=== PATIENT | male | born 1990 | race Hispanic/Latino ===

== ENCOUNTER 2021-08-29 11:46 | Emergency (ER) ==
--- OUTSIDE RECORDS SUMMARY | 2021-08-29 11:50 | XMS REPORT | Continuity of Care Document ---
:1990 Author Organization [facility] t Address [address] [place] [address] [address]. [address] [place] [address] Care Team Providers Name Role Phone ANESAURABH Primary Care Physician Unavailable JEFF Attending Clinician Unavailable JEFF Attending Clinician Unavailable Disha BOTTLING ATTENDANT Attending Clinician DISHA Attending Clinician Unavailable Roberto Carlos COBB, E Attending Clinician Tomasz COBB Attending Clinician Teri ARIAS, S Attending Clinician Hieu ARIAS, Levnh Attending Clinician Perry Fernández MD, J Attending Clinician Gold ARIAS Attending Clinician Singer GUERRERO Attending Clinician Mariusz LAURAP Attending Clinician MARIUSZ Attending Clinician Unavailable Perry Fernández MD, J Admitting Clinician Payers Payer Name Policy Type Policy Number Effective Date Expiration Date S ource Problems Condition Condition Condition Status Onset Resolution Last Treating Co mments Source Name Details Category Date Date Treatment Clinician Date Pneumonia Pneumonia Disease Active Uni vers due to due to 8-25 ity of COVID-19 COVID-19 00:00: [place] virus virus 00 Medical Branch Acute Acute Disease Active Univers respirator respirator 8-25 [place] y of y failure [place] 00 Medical hypoxia hypoxia Branch Fever due Fever due Disease Active Uni vers to to 8-25 ity of COVID-19 COVID-19 00:00: [address] COVID-19 COVID-19 Disease Active Overview: Un lino virus virus 8- Formattin ity of infection infection 00:00: g of this [place] 00 note is Medical different Branch from the original. SARS-CoV- 2 Rapid ID NOW (no units) Date Value 1 Positive (A) 1 Positive (A) No known No known Disease Unive rs active active ity of problems problems [facility] Allergies, Adverse Reactions, Alerts Allergy Allergy Status Severity Reaction(s) Onset Inactive Treating Comm ents Source Name Type Date Date Clinician NO KNOWN Drug Active Univers ALLERGIE Class ity of S [facility] Social History Social Habit Start Date Stop Date Quantity Comments Source Exposure to Not sure [facility] SARS-CoV-2 [facility] (event) [place] Alcohol intake 2021-03-13 2021-03-13 Ex-drinker [facility] 00:00:00 00:00:00 (finding) [facility] Tobacco use and 2017-06-27 2017-06-27 Never used Universit y of exposure 00:00:00 00:00:00 [facility] Sex [birth year] At [birth year] Universit y of 00:00:00 00:00:00 [facility] Smoking Status Start Date Stop Date Source Never smoker [facility] Medications Ordered Filled Start Stop Current Ordering Indication Dosage Frequency Signature Comments Components Source Medication Medication Date Date Medication? Clinician (SIG) Name Name No known No Univers medications 9-13 ity of 13:10: [address] No known No Univers medications 9-13 ity of 13:10: [address] No known No Univers medications 9-13 ity of 13:10: [address] lidocaine 2020- 1{patch 1 Patch, Univers (LIDODERM) 02-27 } Topical, ity of 5 % (700 12:00: 02:32 [place] mg/patch) 00 :00 over 12 Medical patch 1 Hours, Branch Patch ONCE, 1 dose, 02/27/21 at 0700, Routine pantoprazol Yes 40mg 40 mg, Univ ers e 02-20 Oral, ity of (PROTONIX) 14:00: DAILY, [place] EC tablet 00 First dose Medi marla 40 mg on Mon [place] 02/20/21 at 0900, Until Discontinu ed, Routine albuterol-i Yes 1{puff} 1 Puff, [facility] pratropium 02-20 Inhalation ity of (COMBIVENT 01:40: , Q6HPRN, [place] RESPIMAT) 43 Starting Medica l 20-100 [facility] mcg/actuati 02/19/21 at on inhaler 2039, 1 Puff Until Discontinu ed, Routine, Wheezing, Shortness of Breath
Is this order for a patient with suspected or confirmed COVID-19 infection? Yes guaiFENesin Yes 100mg 100 mg, Un lino 100 mg/5 mL 02-19 Oral, Q6H, it y of solution 23:00: First dose [place] as 100 mg 00 on [facility] 02/19/21 at Branch 1800, Until Discontinu ed, Routine sodium Yes 1{spray 1 [place], [facility] ers chloride 02-19 } Nasal, ity of (OCEAN MIST 19:53: PRN, [place] NASAL) 0.65 31 Starting Medi marla % nasal [facility] spray 1 02/19/21 at [place] 1453, Until Discontinu ed, Routine, Itching, dry nose benzocaine- Yes 1{lozen 1 Lozenge, [facility] menthoL 02-18 ge} Oral, ity of (CEPACOL 14:39: Q4HPRN, [place] SORE THROAT 12 Starting Medi marla (MAURILIO-MEN)) [facility] lozenge 1 02/18/21 at Lozenge 0939, Until Discontinu ed, Routine, Sore throat NaCl 0.9% Yes 10mL 10 mL, Univer s (NS) 02-17 Slow IV ity of injection 18:40: Push, [place]N, [place] 10 mL 20 Starting Medical [facility] 02/17/21 at 1340, Until Discontinu ed, Routine, line maintenanc e sodium 2020- No 4mL 4 mL, Univers chloride 7% 02-17 Inhalation i ty of (HYPER-ELLIOT) 14:00: 12:47 , DAILY, [place] nebulizer 00 :30 First dose Medi marla solution 4 on Fri Branch mL 02/17/21 at 0900, Until Discontinu ed, Routine phenoL 2020- No 1{spray 1 [place], Uni vers (SORE 02-17 } Oral, PRN, ity of THROAT 10:17: 14:39 Starting [place] (PHENOL)) 17 :37 Fri Medical 1.4 % spray 02/17/21 at Br anch bottle 1 0517, [place] Until 02/18/21 at 0939, Routine, Sore throat enoxaparin Yes 40mg 40 mg, Unive rs (LOVENOX) 02-16 Subcutaneo ity of injection 22:00: [place], DAILY, [place] 40 mg 00 First dose Medical on [place] Branch 02/16/21 at 1700, Until Discontinu ed, Routine baricitinib 2020- No 4mg 4 mg, Univ ers (OLUMIANT) 02-16 Oral, ity of tablet 4 mg 21:00: 13:59 DAILY, 14 [place] 00 :00 doses, Medical First dose Branch on Sat02/16/21 at 1600, Last dose on Sat03/01/21 at 0900, Routine dexamethaso No 6mg 6 mg, IV U nivers ne 6 mg in 02-16 Piggyback, it y of 0.9% NaCl 17:30: 17:34 QNOON, 10 [place] 50 mL IV 00 :00 doses, Medical piggyback First dose Bran ch (CNR) on [place] 02/16/21 at 1230, Last dose on Sat02/25/21 at 1200, Administer over 20 Minutes, 50 mL acetaminoph Yes 650mg 650 mg, Un lino en 02-16 Oral, ity of (TYLENOL) 17:11: Q6HPRN, [place] tablet 650 22 Starting Medic al mg [place] Branch 02/16/21 at 1211, Until Discontinu ed, Routine, Temp > 38.5 C glucagon Yes 1mg 1 mg, Univers (GLUCAGEN 02-16 Intramuscu ity of DIAGNOSTIC 13:51: lar, PRN, [place] KIT) 15 Starting Medical injection 1 [place] Branch mg 02/16/21 at 0851, Until Discontinu ed, BRAYDEN, Blood Glucose < or = 70 mg/dL and patient is unable to swallow or has mental changes. dextrose 50 Yes 25mL 25 mL, Univ ers % in water 02-16 Slow IV ity of (D50W) 13:51: Push, PRN, [place] injection 15 Starting Medica l 25 mL [place] Branch 02/16/21 at 0851, Until Discontinu ed, BRAYDEN, Blood Glucose < or = 70 mg/dL and patient is unable to swallow or has mental status changes. acetaminoph 2020- No 650mg 650 mg, U nivers en 02-13 Oral, ity of (TYLENOL) 15:00: 14:02 ONCE, 1 [place] tablet 650 00 :00 dose, Mon Medi marla mg 02/13/21 at Branch 1000, [place] benzonatate 2020- No 100mg 100 mg, U nivers (TESSALON 02-13 Oral, ity of PERLES) 14:15: 14:15 ONCE, 1 [place] capsule 100 00 :00 dose, Mon Med ical mg 02/13/21 at Branch 0930, Routine dexamethaso 2020- No 10mg 10 mg, Uni vers ne 02-11 Intramuscu ity of (DECADRON 22:30: 21:42 lar, ONCE, [place] PHOSPHATE) 00 :00 1 dose, Medica l injection Sat Branch 10 mg 02/11/21 at 1730, STAT ibuprofen 2020- No 800mg 800 mg, Uni vers (IBU) 02-11 Oral, ity of tablet 800 21:45: 20:44 ONCE, 1 [place] as mg 00 :00 dose, Sat Medical 02/11/21 at Branch 1645, BRAY[place] acetaminoph 2020- No 1000mg 1,000 mg, Univers en 02-11 Oral, ity of (TYLENOL) 21:45: 20:44 ONCE, 1 [place] tablet 00 :00 dose, Sat Medical 1,000 mg 02/11/21 at [facility] h 1645, Routine azithromyci Yes [id number] 250mg Take 1 Univers n 250 mg 8- [id number] tablet by ity of tablet 00:00: mouth [place] 00 daily. Medical Take 500 Branch mg day 1, then 250 mg days 2 to 5. bromphenira Yes [id number] 5mL Take 5 mL Univers mine-pseudo 8-14 [id number] by mouth 4 ity of ephedrine-D 00:00: (four) [place] M (BROMFED 00 times Medical DM) 2-30-10 daily as Bran ch mg/5 mL needed for syrup Congestion /Allergies or Cough. albuterol Yes [id number] 2{puff} Inhale 2 Univers 90 8- [id number] Puffs ity of mcg/actuati 00:00: every 4 [place] as on inhaler 00 (four) Medical hours as Branch needed for Wheezing or Shortness of Breath. azithromyci Yes [id number] 250mg Take 1 Univers n 250 mg 02-11 [id number] tablet by ity of tablet 00:00: mouth [place] 00 daily. Medical Take 500 Branch mg day 1, then 250 mg days 2 to 5. bromphenira Yes [id number] 5mL Take 5 mL Univers mine-pseudo 02-11 [id number] by mouth 4 ity of ephedrine-D 00:00: (four) [place] M (BROMFED 00 times Medical DM) 2-30-10 daily as Bran ch mg/5 mL needed for syrup Congestion /Allergies or Cough. albuterol Yes [id number] 2{puff} Inhale 2 Univers 90 8-14 [id number] Puffs ity of mcg/actuati 00:00: every 4 [place] as on inhaler 00 (four) Medical hours as Branch needed for Wheezing or Shortness of Breath. predniSONE 2020- No [id number] 40mg Take 2 Univers 20 mg 02-11 [id number] tablets by ity of tablet 00:00: 00:00 mouth [place] 00 :00 daily for Medical 5 days. Branch azithromyci 2020- No [id number] 250mg Take 1 Univers n 250 mg 02-11 [id number] tablet by it y of tablet 00:00: 00:00 mouth [place] 00 :00 daily. Medical Take 500 Branch mg day 1, then 250 mg days 2 to 5. bromphenira 2020- No [id number] 5mL Take 5 mL Univers mine-pseudo 02-11 [id number] by mouth 4 ity of ephedrine-D 00:00: 00:00 (four) [place] as M (BROMFED 00 :00 times Medical DM) 2-30-10 daily as Bran ch mg/5 mL needed for syrup Congestion /Allergies or Cough. albuterol 2020- No [id number] 2{puff} Inhale 2 Univers 90 02-11 [id number] Puffs ity of mcg/actuati 00:00: 00:00 every 4 [place] on inhaler 00 :00 (four) Medical hours as Branch needed for Wheezing or Shortness of Breath. predniSONE 2020- No [id number] 40mg Take 2 Univers 20 mg 02-11 [id number] tablets by ity of tablet 00:00: 04:59 mouth [place] 00 :00 daily for Medical 5 days. Branch predniSONE 2020- No [id number] 40mg Take 2 Univers 20 mg 02-11 [id number] tablets by ity of tablet 00:00: 04:59 mouth [place] 00 :00 daily for Medical 5 days. Branch ibuprofen 2016-07 Yes 600mg Take 1 Unive rs 600 mg 2-07 tablet by ity of tablet 00:00: mouth [place] 00 every 6 Medical (six) Branch hours as needed for Pain (scale 4-6). ibuprofen 2016-07 Yes 600mg Take 1 Unive rs 600 mg 2-07 tablet by ity of tablet 00:00: mouth [place] 00 every 6 Medical (six) Branch hours as needed for Pain (scale 4-6). ibuprofen 2016-07- No 600mg Take 1 Univ ers 600 mg 2-07 -30 tablet by ity of tablet 00:00: 00:00 mouth [place] 00 :00 every 6 Medical (six) Branch hours as needed for Pain (scale 4-6). traMADOL 2016-07 Yes 50mg Take 1 Univers (ULTRAM) 50 0-26 tablet by ity of mg tablet 00:00: mouth [place] 00 every 6 Medical (six) Branch hours as needed for Pain (scale 7-10). traMADOL 2016-07 Yes 50mg Take 1 Univers (ULTRAM) 50 0-26 tablet by ity of mg tablet 00:00: mouth [place] 00 every 6 Medical (six) Branch hours as needed for Pain (scale 7-10). traMADOL 2016-07 No 50mg Take 1 Univer s (ULTRAM) 50 0-26 08-30 tablet by it y of mg tablet 00:00: 00:00 mouth [place] 00 :00 every 6 Medical (six) Branch hours as needed for Pain (scale 7-10). No known No Univers medications [facility] No known No Univers medications [facility] No known No Univers medications [facility] Vital Signs Vital Name Observation Time Observation Value Comments Source Systolic blood 2021-03-13 18:03:00 129 mm[Hg] Univer sity [facility] Diastolic blood 2021-03-13 18:03:00 86 [facility]Hg[facility] 2021-03-13 18:03:00 87 /min [facility] Body temperature 2021-03-13 18:03:00 37.17 Lucía [facility] Body height 2021-03-13 18:03:00 172.7 cm [facility] Body weight 2021-03-13 18:03:00 76.068 kg [facility] BMI 2021-03-13 18:03:00 25.50 kg/m2 [facility] Oxygen saturation in 2021-03-13 18:03:00 96 /min [facility] Arterial blood by [facility] Pulse oximetry Branch Systolic blood 2021-02-27 18:00:00 108 mm[Hg] Univer sity [facility] Diastolic blood 2021-02-27 18:00:00 63 mm[facility]Hg] [facility] 2021-02-27 18:00:00 77 /min [facility] Body temperature 2021-02-27 18:00:00 36.67 Lucía [facility] Respiratory rate 2021-02-27 18:00:00 18 /min Univ ersity [facility] [place] [facility] Oxygen saturation in 2021-02-27 18:00:00 93 /min University of Arterial blood by [facility] Pulse oximetry Branch Body weight 2021-02-16 01:38:00 81.647 kg [facility] [place] [facility] BMI 2021-02-16 01:38:00 27.37 kg/m2 [facility] [place] [facility] Systolic blood 2021-02-13 13:42:00 141 mm[Hg] Univer sity of [facility] Medical Branch Diastolic blood 2021-02-13 13:42:00 100 mm[Hg] Unive rsity of [facility] Heart rate 2021-02-13 13:42:00 113 /min Universi ty of [facility] Body temperature 2021-02-13 13:42:00 39.28 Lucía Univ ersity [facility] [place] [facility] Respiratory rate 2021-02-13 13:42:00 20 /min Univ ersity of [facility] Body weight 2021-02-13 13:42:00 76.204 kg [facility] [place] [facility] BMI 2021-02-13 13:42:00 25.54 kg/m2 [facility] [place] [facility] Oxygen saturation in 2021-02-13 13:42:00 96 /min University of Arterial blood by [facility] Pulse oximetry Branch Heart rate 2021-02-11 22:37:00 94 /min [facility]i ty [facility] [place] [facility] [place] Body temperature 2021-02-11 22:37:00 37.33 Lucía Univ ers[facility] [place] [facility] Respiratory rate 2021-02-11 22:37:00 18 /min Univ ers[facility] [place] [facility] Oxygen saturation in 2021-02-11 22:37:00 97 /min University of Arterial blood by [facility] Pulse oximetry Branch Systolic blood 2021-02-11 21:43:00 128 mm[Hg] Univer sity of [facility] Medical Branch Diastolic blood 2021-02-11 21:43:00 72 mm[Hg] Unive rsity of [facility] Medical [place] Body weight 2021-02-11 20:21:00 76.204 kg [facility] [place] [facility] BMI 2021-02-11 20:21:00 25.54 kg/m2 [facility] [place] [facility] Procedures Procedure Date / Time Performing Clinician Source Performed XR CHEST 2 VW 2021-03-16 16:28:22 [facility] 2021-02-25 09:17[facility], K, CL, CO2, Medical Branch GLUCOSE, BUN, CREATININE, CA) CBC WITH DIFF 2021-02-25 09:17[facility] 2021-02-21 11:08:00 [facility] VEN[facility] LEGS 2021-02-20 19:39:48 [place], [facility] BILATERAL - BY VASCULAR [facility] LAB MAGNESIUM 2021-02-20 10:12:00 [place] [facility] BASIC METABOLIC PANEL 2021-02-20 10:12:00 [place] [facility] (NA, K, CL, CO2, [facility] GLUCOSE, BUN, CREATININE, CA) D-DIMER 2021-02-19 20:24:00 [place] [facility] BASIC METABOLIC PANEL 2021-02-19 08:08:00 Efra, [facility] (NA, K, CL, CO2, Medical Branch GLUCOSE, BUN, CREATININE, CA) CBC WITHOUT DIFF 2021-02-17 10:06:00 Podila, [facility] PHOSPHORUS 2021-02-17 10:05:00 Podila, [facility] MAGNESIUM 2021-02-17 10:05:00 Podila, [facility] BASIC METABOLIC PANEL 2021-02-17 10:05:00 Podila, [facility] (NA, K, CL, CO2, [facility] Branch GLUCOSE, BUN, CREATININE, CA) AC PANEL 20 + LACTIC 2021-02-16 17:35:00 Efra [facility] ACID [facility] PNEUMOCOCCAL ANTIGEN 2021-02-16 17:08:00 Stephane Robles [facility] C-REACTIVE PROTEIN 2021-02-16 15:21:00 Stephane Robles [facility] PROTHROMBIN TIME / INR 2021-02-16 15:21:00 Stephane Robles [facility] D-DIMER 2021-02-16 15:21:00 Stephane Robles [facility] ACTIVATED PARTIAL 2021-02-16 15:21:00 Stephane Robles [facility] AG-AB WITH 2021-02-16 15:21:00 Mindi Vizcaino [facility] REFLEX [facility] Branch XR CHEST 1 VW 2021-02-16 02:03:52 Joyce Williamson [facility] COVID-19 (ID NOW RAPID 2021-02-16 02:03:00 Joyce Williamson [facility] TESTING) [facility] TROPONIN I 2021-02-16 01:56:00 Joyce Williamson [facility] COMP. METABOLIC PANEL 2021-02-16 01:56:00 Joyce Williamson [facility] ([id number]) [facility] CBC WITH DIFF 2021-02-16 01:56:00 Joyce Williamson [facility] BLOOD CULTURE SCREEN 2021-02-16 01:55:00 Joyce Williamson [facility] LACTIC ACID WHOLE BLOOD 2021-02-16 01:51:00 Joyce Williamson [facility] HB ECG ROUTINE & RHYTHM 2021-02-16 01:49:58 Joyce Williamson Uni [facility] NOTICE OF PRIVACY 2021-02-16 01:16:36 Doctor Unassigned, No [facility] FOR 2021-02-16 01:15:53 Doctor Unassigned, No [facility] HOSPITAL ADMISSION 2021-02-15 05:01:00 Doctor Unassigned, No Uni versity [facility] NOTICE OF PRIVACY 2021-02-13 13:34:36 Doctor Unassigned, No [facility] CONSENT/REFUSAL FOR 2021-02-13 13:34:12 Doctor Unassigned, No Un [facility] DIAGNOSIS AND TREATMENT Name Medical Branch XR CHEST 1 VW 2021-02-11 20:41:40 Trevin Vee [facility] RAPID STREP SCREEN FOR 2021-02-11 20:25:00 Trevin Vee [facility] GROUP A Medical Branch COVID-19 (ID NOW RAPID 2021-02-11 20:25:00 Trevin Vee [facility] TESTING) Medical Branch Encounters Start End Encounter Admission Attending Care Care Encounter Source Date/Time Date/Time Type Type Clinicians Facility Department ID 2021-05-19 2021-05-19 Outpatient R MARGARITA AGUILAR [facility] [id number] Univers 11:30:00 11:30:00 MARGARITA AGUILAR [id number] i ty of [facility] 2021-05-19 2021-05-19 Outpatient R MARGARITA AGUILAR [facility] [id number] Univers 11:30:00 11:30:00 MARGARITA AGUILAR i ty of [facility] 2021-04-12 2021-04-12 Outpatient R [facility] [id number] Univers 16:20:00 16:20:00 ity [facility] 2021-04-12 2021-04-12 Outpatient R [facility] [id number] Univers 08:00:00 08:00:00 [id number] ity [facility] 2021-04-12 2021-04-12 Outpatient R [facility] [id number] Univers 08:00:00 08:00:00 ity [facility] 2021-03-16 2021-03-16 [facility] [id number] Univers 11:21:02 23:59:00 Encounter Olga Mcintosh [id number] [facility] [id number] [facility] [id number] [facility] 807 Branch 2021-03-16 2021-03-16 Outpatient R DISHA [facility] [id number] Univers 11:30:00 11:30:00 [facility] [id number] [facility] 2021-03-16 2021-03-16 Outpatient R DISHA [facility] [id number] Univers 00:00:00 00:00:00 OLGA verdugo [facility] 2021-03-13 2021-03-13 Outpatient R [facility] [id number] Univers 14:00:00 14:00:00 [id number] lucina [facility] 2021-03-13 2021-03-13 [facility] [id number] Univers 12:36:35 13:51:21 Visit Olga [facility] [id number] it y of [place] 4.2.7.2.686 Aries as [place] [id number] Wi leonidascasey gresham [address] [place] [address] Medical Office Building 2021-03-13 2021-03-13 Outpatient R DISHA [facility] [id number] Univers 13:00:00 13:00:00 OLGA verdugo [facility] 2021-02-28 2021-02-28 Patient Geetha Azevedo [id number] Univers 00:00:00 00:00:00 Outreach E Singh [id number] i [place] 4[place]2.7.2.686 [place] [id number] [facility] [address] [place] 2021-02-28 2021-02-28 Transition Bel Tolbert [id number] Univers 00:00:00 00:00:00 of Care Diana Singh [id number] it [place] 4[place]2.7.2.686 [place] [id number] [facility] [address] [place] 2021-02-15 2021-02-27 Hospital Joyce Williamson 1.2.840. [id number] Univers 20:33:00 18:54:00 Encounter Gabriel Hagen 350.1 .[id number] ity of Jesse Amador [facility] [id number] Jakob Hernandez [id number] [place] [id number] Branch 2021-02-15 2021-02-15 Emergency X [facility] ERT [id number] Univers 20:14:00 [facility]:14:00 [facility] 2021-02-13 2021-02-13 Emergency Vaughan, [facility] [id number] Univers 08:44:00 09:32:00 Lazaro Mcintosh [id number] i ty of [place] 4.2.7.2.686 [facility] [id number] [address] 2021-02-13 2021-02-13 Emergency X [facility] ERT [id number] Univers 08:33:00 08:33:00 [facility] 2021-02-11 2021-02-11 Emergency Vee, [facility] [id number] Univers 15:23:00 17:46:00 Trevin Mcintosh [id number] i ty of [place] [id number] [facility] [id number] [address] 2021-02-11 2021-02-11 Emergency X VEE, [facility] ERT [id number] Univers 15:23:00 15:23:00 TREVIN [facility] Results Test Description Test Time Test Comments Results Result Comments Source BASIC METABOLIC PANEL (NA, K, CL, CO2, GLUCOSE, BUN, 2021-01 09:53:34 CREATININE, CA) Test Item Value Reference Range Interpretation Comme nts NA (test code = 6027360288) 136 mmol/L 135-145 K (test code = 3104782473) 4.2 mmol/L 3.5-5.0 CL (test code = 7916281285) 104 mmol/L 98-108 CO2 TOTAL (test code = 7071778232) 25 mmol/L 23-31 AGAP (test code = 8989663883) 2-16 BUN (test code = 4029984505) 18 mg/dL 7-23 GLUCOSE (test code = 0899894982) 115 mg/dL 70-110 H CREATININE (test code = 0.52 mg/dL 0.60-1.25 L 5794507239) CALCIUM (test code = 6053729648) 8.9 mg/dL 8.6-10.6 eGFR (test code = 6215868196) mL/min/1.73m2 KUSHAL (test code = KUSHAL) Association of Glomerular Filtration Rate (GFR) and Staging of Kidney Disease* + +-------- + ------+| GFR (mL/min/1.73 m2) ?| With Kidney Damage ?| ?Without Kidney Damage+ +-- + +| ?>90 ?| ?Stage one ?| ? Normal ?+ +------- + -------+| ?60-89 ?| ?Stage two ?| ? Decreased GFR ? + +-------- + ------+| ?30-59 ?| ?Stage three ?| ? Stage three ? + +-------- + ------+| ?15-29 ?| ?Stage four ? | ? Stage four ?+ +------- + -------+| ?<15 (or dialysis) ? ?| ?Stage five ? | ? Stage five ?+ +------- + -------+ *Each stage assumes the associated GFR level has been in effect for at least three months. ?Stages 1 to 5, with or without kidney disease, indicate chronic kidney disease. Notes: Determination of stages one and two (with eGFR >59mL/min/1.73 m2) requires estimation of kidney damage for at least three months as defined by structural or functional abnormalities of the kidney, manifested by either:Pathological abnormalities or Markers of kidney damage (including abnormalities in the composition of the blood or urine or abnormalities in imaging tests). Lab Interpretation (test code = Abnormal 62821-7) [facility] WITH [id number] 09:33:36 Test Item Value Reference Range Interpretation Comments WBC (test code = See_Comment [Automated 0077-2) message] The sy stem which generated this result transmitted reference range : 4.20 - 10.70 10*3/?L. The reference range was not used to interpret this result as normal/abnormal . RBC (test code = See_Comment [Automated 096-8) message] The sy stem which generated this result transmitted reference range : 4.26 - 5.52 10*6/?L. The reference range was not used to interpret this result as normal/abnormal . HGB (test code = 16.5 g/dL 12.2-16.4 H 718-7) HCT (test code = 46.0 % 38.4-49.3 4544-3) MCV (test code = 87.0 fL 81.7-95.6 787-2) MCH (test code = 31.2 pg 26.1-32.7 785-6) MCHC (test code = 35.9 g/dL 31.2-35.0 H 786-4) RDW-SD (test code = 36.4 fL 38.5-51.6 L 82486-0) RDW-CV (test code = 11.4 % 12.1-15.4 L 788-0) PLT (test code = See_Comment [Automated 777-3) message] The sy stem which generated this result transmitted reference range : 150 - 328 10*3/ ?L. The reference r yulisa was not used to interpret this result as normal/abnormal . MPV (test code = 9.0 fL 9.8-13.0 L 90478-6) NRBC/100 WBC (test See_Comment [Automat ed code = 4924453509) message] The system which generated this result transmitted reference range : 0.0 - 10.0 /100 WBCs. The refer ence range was not u sed to interpret th is result as normal/abnormal . NRBC x10^3 (test code <0.01 See_Comment [Auto mated = 7366961736) message] The s ystem which generated this result transmitted reference range : 10*3/?L. The reference range was not used to interpret this result as normal/abnormal . GRAN MAT (NEUT) % 77.9 % (test code = 770-8) IMM GRAN % (test code 0.80 % = 8197607995) LYMPH % (test code = 15.4 % 736-9) MONO % (test code = 5.5 % 5905-5) EOS % (test code = 0.1 % 713-8) BASO % (test code = 0.3 % 706-2) GRAN MAT x10^3(ANC) 5.78 10*3/uL 1.99-6.95 (test code = 8588769405) IMM GRAN x10^3 (test 0.06 10*3/uL 0.00-0.06 code = 2084482596) LYMPH x10^3 (test code 1.14 10*3/uL 1.09-3.23 = 731-0) MONO x10^3 (test code 0.41 10*3/uL 0.36-1.02 = 742-7) EOS x10^3 (test code = <0.03 0.06-0.53 L 711-2) BASO x10^3 (test code <0.03 0.01-0.09 = 704-7) Lab Interpretation Abnormal (test code = 62440-6) [facility] WITH [id number] 11:21:05 Test Item Value Reference Range Interpretation Comments WBC (test code = See_Comment [Automated 6690-2) message] The sy stem which generated this result transmitted reference range : 4.20 - 10.70 10*3/?L. The reference range was not used to interpret this result as normal/abnormal . RBC (test code = See_Comment [Automated 789-8) message] The sy stem which generated this result transmitted reference range : 4.26 - 5.52 10*6/?L. The reference range was not used to interpret this result as normal/abnormal . HGB (test code = 14.8 g/dL 12.2-16.4 718-7) HCT (test code = 41.6 % 38.4-49.3 4544-3) MCV (test code = 87.2 fL 81.7-95.6 787-2) MCH (test code = 31.0 pg 26.1-32.7 785-6) MCHC (test code = 35.6 g/dL 31.2-35.0 H 786-4) RDW-SD (test code = 36.9 fL 38.5-51.6 L 80932-8) RDW-CV (test code = 11.5 % 12.1-15.4 L 788-0) PLT (test code = See_Comment H [Automated 777-3) message] The sy stem which generated this result transmitted reference range : 150 - 328 10*3/ ?L. The reference r yulisa was not used to interpret this result as normal/abnormal . MPV (test code = 9.3 fL 9.8-13.0 L 77007-1) NRBC/100 WBC (test See_Comment [Automat ed code = 2198870913) message] The system which generated this result transmitted reference range : 0.0 - 10.0 /100 WBCs. The refer ence range was not u sed to interpret th is result as normal/abnormal . NRBC x10^3 (test code <0.01 See_Comment [Auto mated = 4412409940) message] The s ystem which generated this result transmitted reference range : 10*3/?L. The reference range was not used to interpret this result as normal/abnormal . GRAN MAT (NEUT) % 70.3 % (test code = 770-8) IMM GRAN % (test code 1.80 % = 1861414862) LYMPH % (test code = 16.4 % 736-9) MONO % (test code = 9.3 % 5905-5) EOS % (test code = 2.0 % 713-8) BASO % (test code = 0.2 % 706-2) GRAN MAT x10^3(ANC) 5.73 10*3/uL 1.99-6.95 (test code = 6933875791) IMM GRAN x10^3 (test 0.15 10*3/uL 0.00-0.06 H code = 8002674554) LYMPH x10^3 (test code 1.34 10*3/uL 1.09-3.23 = 731-0) MONO x10^3 (test code 0.76 10*3/uL 0.36-1.02 = 742-7) EOS x10^3 (test code = 0.16 10*3/uL 0.06-0.53 711-2) BASO x10^3 (test code <0.03 0.01-0.09 = 704-7) Lab Interpretation Abnormal (test code = 49715-7) [facility] [id number] 03:01:24 Test Item Value Reference Range Interpretation Comments Blood Culture-Aerobic No organisms No growth Previo us (test code = 02672-0) isolated prelim inary verified result was Culture In Progress on 02/16/2021 at 01 01 CDTPrevious preliminary verified result was No growth a t 24 hours on 02/16/2021 at 22 01 CDTPrevious preliminary verified result was No growth a t 48 hours on 02/17/2021 at 22 CDTPrevious preliminary verified result was No growth a t 72 hours on 02/18/2021 at 22 01 CDT Blood No organisms No growth Previous Culture-Anaerobic isolated preliminar y (test code = 80217-9) verifi ed result was Culture In Progress on 02/16/2021 at 07 01 CDTPrevious preliminary verified result was No growth a t 24 hours on 02/16/2021 at 22 07 CDTPrevious preliminary verified result was No growth a t 48 hours on 02/17/2021 at 22 07 CDTPrevious preliminary verified result was No growth a t 72 hours on 02/18/2021 at 22 CDT Lab Interpretation Normal (test code = 53201-3) [facility] [id number] 03:01:24 Test Item Value Reference Range Interpretation Comments Blood Culture-Aerobic No organisms No growth Previo us (test code = 53919-3) isolated prelim inary verified result was Culture In Progress on 02/16/2021 at 07 01 CDTPrevious preliminary verified result was No growth a t 24 hours on 02/16/2021 at 22 07 CDTPrevious preliminary verified result was No growth a t 48 hours on 02/17/2021 at 22 07 CDTPrevious preliminary verified result was No growth a t 72 hours on 02/18/2021 at 22 01 CDT Blood No organisms No growth Previous Culture-Anaerobic isolated preliminar y (test code = 21958-1) verifi ed result was Culture In Progress on 02/16/2021 at 07 01 CDTPrevious preliminary verified result was No growth a t 24 hours on 02/16/2021 at 22 07 CDTPrevious preliminary verified result was No growth a t 48 hours on 02/17/2021 at 22 CDTPrevious preliminary verified result was No growth a t 72 hours on 02/18/2021 at 22 01 CDT Lab Interpretation Normal (test code = 39793-2) [facility] 11:41:45 Test Item Value Reference Range Interpretation Comments MAGNESIUM (test code = 8706597342) 2.2 mg/dL 1.7-2.4 Lab Interpretation (test code = Normal 40197-8) [facility] (NA, K, CL, CO2, GLUCOSE, BUN, CREATININE, CA)2021-02-20 11:41:45 Test Item Value Reference Range Interpretation Comments NA (test code = 135 mmol/L 135-145 6260640821) K (test code = 4.0 mmol/L 3.5-5.0 6059377065) CL (test code = 103 mmol/L 98-108 2436682302) CO2 TOTAL (test code = 25 mmol/L 23-31 8166663960) AGAP (test code = 2-16 4539536911) BUN (test code = 24 mg/dL 7-23 H 9718826890) GLUCOSE (test code = 110 mg/dL 70-110 5697639532) CREATININE (test code = 0.52 mg/dL 0.60-1.25 L 4063705469) CALCIUM (test code = 9.1 mg/dL 8.6-10.6 7722044906) eGFR (test code = mL/min/1.73m2 1946655932) KUSHAL (test code = KUSHAL) Association of Glomerular Filtration Rate (GFR) and Staging of Kidney Disease* + --+ --+ ------+| GFR (mL/min/1.73 m2) ?| With Kidney Damage ?| ?Without Kidney Damage+ --------+ --------+ +| ?>90 ?| ?Stage one ?| ? Normal ?+ ---+ ---+ -------+| ?60-89 ?| ?Stage two ?| ? Decreased GFR ? + --+ --+ ------+| ?30-59 ?| ?Stage three ?| ? Stage three ? + --+ --+ ------+| ?15-29 ?| ?Stage four ? | ? Stage four ?+ ---+ ---+ -------+| ?<15 (or dialysis) ? ?| ?Stage five ? | ? Stage five ?+ ---+ ---+ -------+ *Each stage assumes the associated GFR level has been in effect for at least three months. ?Stages 1 to 5, with or without kidney disease, indicate chronic kidney disease. Notes: Determination of stages one and two (with eGFR >59mL/min/1.73 m2) requires estimation of kidney damage for at least three months as defined by structural or functional abnormalities of the kidney, manifested by either:Pathological abnormalities or Markers of kidney damage (including abnormalities in the composition of the blood or urine or abnormalities in imaging tests). Lab Interpretation Abnormal (test code = 43067-2) [facility][id number] 20:58:50 Test Item Value Reference Interpretation Comments Range D-DIMER (test code = See_Comment H [Autom ated 4774134847) message] The system which generated this result transmitted reference range : <0.50 ?g/mL (FEU). The reference range was not used to interpret this result as normal/abnormal . KUSHAL (test code = This test may be KUSHAL) used in conjunction with a clinical pretest probability (PTP) assessment model to exclude venous thromboembolism (VTE) in patients suspected of deep venous thrombosis (DVT) and pulmonary embolism (PE) A D-Dimer value less than 0.50 ?g/ml (FEU) has a negative predicative value of 96 to 100% (95% CI)and 97 to 100% (95% CI) as an aid in the diagnosis of deep vein thrombosis (DVT) and pulmonary embolism when there is low or moderate pretest probability of PE or DVT. D-Dimer values are expressed in initial fibrinogen equivalent units (FEU)" The assay results should be used with other information, including the clinical context, in forming a diagnosis. Lab Interpretation Abnormal (test code = 61609-6) [facility] METABOLIC PANEL (NA, K, CL, CO2, GLUCOSE, BUN, CREATININE, CA)2021-02-19 08:44:20 Test Item Value Reference Range Interpretation Comments NA (test code = 135 mmol/L 135-145 2793188125) K (test code = 4.3 mmol/L 3.5-5.0 4617824861) CL (test code = 95 mmol/L 98-108 L 7989819548) CO2 TOTAL (test code = 31 mmol/L 23-31 5637480725) AGAP (test code = 2-16 8478458804) BUN (test code = 24 mg/dL 7-23 H 5977049650) GLUCOSE (test code = 122 mg/dL 70-110 H 4729915594) CREATININE (test code = 0.68 mg/dL 0.60-1.25 8507033337) CALCIUM (test code = 9.1 mg/dL 8.6-10.6 2283574197) eGFR (test code = mL/min/1.73m2 5524230705) KUSHAL (test code = KUSHAL) Association of Glomerular Filtration Rate (GFR) and Staging of Kidney Disease* + --+ --+ ------+| GFR (mL/min/1.73 m2) ?| With Kidney Damage ?| ?Without Kidney Damage+ --------+ --------+ +| ?>90 ?| ?Stage one ?| ? Normal ?+ ---+ ---+ -------+| ?60-89 ?| ?Stage two ?| ? Decreased GFR ? + --+ --+ ------+| ?30-59 ?| ?Stage three ?| ? Stage three ? + --+ --+ ------+| ?15-29 ?| ?Stage four ? | ? Stage four ?+ ---+ ---+ -------+| ?<15 (or dialysis) ? ?| ?Stage five ? | ? Stage five ?+ ---+ ---+ -------+ *Each stage assumes the associated GFR level has been in effect for at least three months. ?Stages 1 to 5, with or without kidney disease, indicate chronic kidney disease. Notes: Determination of stages one and two (with eGFR >59mL/min/1.73 m2) requires estimation of kidney damage for at least three months as defined by structural or functional abnormalities of the kidney, manifested by either:Pathological abnormalities or Markers of kidney damage (including abnormalities in the composition of the blood or urine or abnormalities in imaging tests). Lab Interpretation Abnormal (test code = 89102-2) [facility]21-[facility] 15:31:01 Test Item Value Reference Range Interpretation Comments PHOSPHORUS (test code = 2213124714) 5.1 mg/dL 2.5-5.0 H Lab Interpretation (test code = Abnormal 10982-6) [facility]21-[facility] 15:31:01 Test Item Value Reference Range Interpretation Comments MAGNESIUM (test code = 7118725944) 2.4 mg/dL 1.7-2.4 Lab Interpretation (test code = Normal 69161-0) [facility] (NA, K, CL, CO2, GLUCOSE, BUN, CREATININE, CA)2021-02-17 10:38:39 Test Item Value Reference Range Interpretation Comments NA (test code = 140 mmol/L 135-145 2055253439) K (test code = 4.1 mmol/L 3.5-5.0 9840275850) CL (test code = 104 mmol/L 98-108 3461213834) CO2 TOTAL (test code = 28 mmol/L 23-31 1842888203) AGAP (test code = 2-16 1138425701) BUN (test code = 26 mg/dL 7-23 H 2766057276) GLUCOSE (test code = 121 mg/dL 70-110 H 7579324003) CREATININE (test code = 0.62 mg/dL 0.60-1.25 3043632289) CALCIUM (test code = 9.2 mg/dL 8.6-10.6 4329230330) eGFR (test code = mL/min/1.73m2 8387470253) KUSHAL (test code = KUSHAL) Association of Glomerular Filtration Rate (GFR) and Staging of Kidney Disease* + --+ --+ ------+| GFR (mL/min/1.73 m2) ?| With Kidney Damage ?| ?Without Kidney Damage+ --------+ --------+ +| ?>90 ?| ?Stage one ?| ? Normal ?+ ---+ ---+ -------+| ?60-89 ?| ?Stage two ?| ? Decreased GFR ? + --+ --+ ------+| ?30-59 ?| ?Stage three ?| ? Stage three ? + --+ --+ ------+| ?15-29 ?| ?Stage four ? | ? Stage four ?+ ---+ ---+ -------+| ?<15 (or dialysis) ? ?| ?Stage five ? | ? Stage five ?+ ---+ ---+ -------+ *Each stage assumes the associated GFR level has been in effect for at least three months. ?Stages 1 to 5, with or without kidney disease, indicate chronic kidney disease. Notes: Determination of stages one and two (with eGFR >59mL/min/1.73 m2) requires estimation of kidney damage for at least three months as defined by structural or functional abnormalities of the kidney, manifested by either:Pathological abnormalities or Markers of kidney damage (including abnormalities in the composition of the blood or urine or abnormalities in imaging tests). Lab Interpretation Abnormal (test code = 56041-0) [facility] WITHOUT [id number] 10:24:14 Test Item Value Reference Range Interpretation Comments WBC (test code = 6690-2) See_Comment [A utomated message] The system [employer] generated this result transmit gurvinder reference range : 4.20 - 10.70 10*3/?L. The reference range was not used to interpret this result as normal/abnormal . RBC (test code = 789-8) See_Comment [Au tomated message] The system [employer] generated this result transmit gurvinder reference range : 4.26 - 5.52 10* 6/?L. The reference r yulisa was not used to interpret this result as normal/abnormal . HGB (test code = 718-7) 14.9 g/dL 12.2-16.4 HCT (test code = 4544-3) 42.4 % 38.4-49.3 MCH (test code = 785-6) 31.2 pg 26.1-32.7 MCV (test code = 787-2) 88.7 fL 81.7-95.6 MCHC (test code = 786-4) 35.1 g/dL 31.2-35.0 H PLT (test code = 777-3) See_Comment [Au tomated message] The system [employer] generated this result transmit gurvinder reference range : 150 - 328 10*3/?L. The reference range was not used to interpret this result as normal/abnormal . MPV (test code = 9.2 fL 9.8-13.0 L 01290-6) RDW-CV (test code = 11.7 % 12.1-15.4 L 788-0) RDW-SD (test code = 37.9 fL 38.5-51.6 L 81191-2) NRBC x10^3 (test code = <0.01 See_Comment [Au tomated message] 4589766564) The system [employer] generated this result transmit gurvinder reference range : 10*3/?L. The reference range was not used to interpret this result as normal/abnormal . NRBC/100 WBC (test code See_Comment [Au tomated message] = 4610562302) The system [employer] generated this result transmit gurvinder reference range : 0.0 - 10.0 /100 WBC s. The reference r yulisa was not used to interpret this result as normal/abnormal . IPF % (test code = 1793699037) Lab Interpretation (test Abnormal code = 81732-5) [facility] WITH [id number] 23:51:08 Test Item Value Reference Range Interpretation Comments HIV Negative Negative Semi-quantitative (test code = 54606-1) KUSHAL (test code = Non-reactive for HIV-1 KUSHAL) antigen and HIV-1/HIV-2 antibodies. ?No laboratory evidence of HIV infection. ?Repeat in 2-4 weeks if acute HIV infection is suspected. [facility]manXR [facility] 1 [id number] 21:07:08 Interval worsening of bilateral airspace disease compatible with thepatient history of Covid pneumonia Preliminary Report Dictated by Resident: Jasbir Clark MD., have reviewed this study and agree with theabove report.EXAM: XR CHEST 1 VW COMPARISON: Chest radiograph dating back to 02/11/2021 HISTORY: hypoxia FINDINGS: Lungs: The lungs are underexpanded. Interval worsening of bilateral hazyairspace opacities. No pleural effusion or pneumothorax. Heart/Mediastinum: The cardiomediastinal silhouette is normal in sizeaccounting for technique. Bones: No osseous lesions are detected. The soft tissues appear normal [facility], Radiant Results Inft User - 02/16/2021 4:08 PM CDT EXAM: XR CHEST 1 VWCOMPARISON: Chest radiograph dating back to 02/11/2021HISTORY: hypoxia FINDINGS:Lungs: The lungs are underexpanded. Interval worsening of bilateral hazyairspace opacities. No pleural effusion or pneumothorax. Heart/Mediastinum: The cardiomediastinal silhouette is normal in sizeaccounting for technique.Bones: No osseous lesions are detected. The soft tissues appear normalIMPRESSIONInterval worsening of bilateral airspace disease compatible with thepatient history of Covid pneumoniaPreliminary Report Dictated by Resident: Jasbir Nassarann, MD., have reviewed this study and agree with theabove report.[facility]manLEGIONELLA URINARY ANTIGEN [id number] 19:21:03 Test Item Value Reference Range Interpretation Comments Legionella Urinary Negative Negative Antigen (test code = 3131600379) KUSHAL (test code = KUSHAL) Negative for L. pneumophilia serogroup I antigen in urine suggesting no recent or current infection. Infection due to Legionella cannot be ruled out since other serogroups and species may cause disease. Furthermore, antigens may not be present in urine during early stage of infection, or the level of antigen present in urine may be below the detection limit of the test. Lab Interpretation (test Normal code = 90937-0) [facility]manPNEUMOCOCCAL [id number] 19:20:58 Test Item Value Reference Range Interpretation Comments S. pneumoniae antigen (test code = Negative Negative 0961589172) Lab Interpretation (test code = Normal 12768-7) [facility]man[facility] PANEL [facility] + LACTIC [id number] 17:37:54 Test Item Value Reference Range Interpretation Comments PH (test code = 2) 7.35-7.45 H PCO2 (test code = See_Comment [Automat ed 7751480470) message] The sy stem which generated this result transmitted reference range : 35 - 45 mmHg. The reference range was not used to interpret this result as normal/abnormal . PO2 (test code = See_Comment L [Automated 6922680655) message] The sy stem which generated this result transmitted reference range : 80 - 100 mmHg. The reference range was not used to interpret this result as normal/abnormal . HCO3 (test code = See_Comment [Automate d 5998199645) message] The sy stem which generated this result transmitted reference range : 22 - 26 mEq/L. The reference range was not used to interpret this result as normal/abnormal . BE (test code = See_Comment [Automated 4172099419) message] The sy stem which generated this result transmitted reference range : -3.0 - 3.0 mEq/ L. The reference r yulisa was not used to interpret this result as normal/abnormal . THB (test code = 16.0 g/dL 13.5-18.0 6257968624) %O2HB (test code = 89.5 % 94.0-99.0 L 2998792877) %COHB ART (test code = 0.1 % 0.0-1.5 5856036142) %METHB ART (test code = 0.0 % 0.4-1.5 L 4995761735) VOL%O2 ART (test code = 20.1 % 15.0-23.0 1842565539) NA (test code = 141 mmol/L 135-145 1949342275) K+ (test code = 3.8 mmol/L 3.5-5.0 5784690206) AC CA IONZ (test code = 4.80 mg/dL 4.50-5.30 4248871155) GLUCOSE (test code = 101 mg/dL 70-110 8964163891) LACTIC ACID (test code 1.00 mmol/L 0.50-2.20 = 7812488774) Lab Interpretation Abnormal (test code = 02879-8) [facility]manC-REACTIVE [id number] 16:55:03 Test Item Value Reference Range Interpretation Comments CRP (test code = 7611948743) 17.3 mg/dL <0.8 H Lab Interpretation (test code = Abnormal 10974-4) [facility]manD-[id number] 15:53:01 Test Item Value Reference Interpretation Comments Range D-DIMER (test code = See_Comment H [Autom ated 4406572456) message] The system which generated this result transmitted reference range : <0.50 ?g/mL (FEU). The reference range was not used to interpret this result as normal/abnormal . KUSHAL (test code = This test may be KUSHAL) used in conjunction with a clinical pretest probability (PTP) assessment model to exclude venous thromboembolism (VTE) in patients suspected of deep venous thrombosis (DVT) and pulmonary embolism (PE) A D-Dimer value less than 0.50 ?g/ml (FEU) has a negative predicative value of 96 to 100% (95% CI)and 97 to 100% (95% CI) as an aid in the diagnosis of deep vein thrombosis (DVT) and pulmonary embolism when there is low or moderate pretest probability of PE or DVT. D-Dimer values are expressed in initial fibrinogen equivalent units (FEU)" The assay results should be used with other information, including the clinical context, in forming a diagnosis. Lab Interpretation Abnormal (test code = 09577-7) [facility]aufmanPROTHROMBIN TIME / [id number] 15:53:01 Test Item Value Reference Range Interpretation Comments PROTIME PATIENT (test See_Comment H [Auto mated message] code = 5964-2) The system [employer] generated this result transmitted ref erence range: 10.1 - 1 2.6 Seconds. The reference range was not used to int erpret this result as normal/abnormal . INR (test code = 6301-6) Nor mal INR <1.1; Warfarin Therap eutic range 2.0 to 3. 0 or 2.5 to 3.5, dep ending upon the indica tions. Lab Interpretation (test Abnormal code = 89203-8) [facility]manACTIVATED PARTIAL THRMPLAS [id number] 15:53:01 Test Item Value Reference Range Interpretation Comments APTT Patient (test code = See_Comment [ Automated message] 3173-2) The system [employer] h generated this result transmitted ref erence range: 26 - 36 Seconds. The re ference range was not u sed to interpret this result as normal/abnor mal. Lab Interpretation (test Normal code = 23858-6) [facility]manTROPONIN [id number] 03:57:02 Test Item Value Reference Interpretation Comments Range TROPONIN I (test 0.002 ng/mL See_Comment [Automated code = 2701165376) message] The system which generated this result transmitted reference range : <=0.034. The reference range was not used to interpret this result as normal/abnormal . KUSHAL (test code = Reference (Normal) KUSHAL) Range (defined by the 99th percentile reference limit): <= 0.034 ng/mL Note: Cardiac troponin begins to rise 3-4 hours after the onset of ischemia. Repeat in 4-6 hours if the sample was drawn within 3-4 hours of the onset of the symptom and found normal. Diagnosis of myocardial injury is made with acute changes in cTn concentrations with at least one serial sample above the 99th percentile upper reference limit (URL), taken together with the patient's clinical presentation. Biotin has been reported to cause a negative bias, interpret results relative to patient's use of biotin. Lab Interpretation Normal (test code = 70293-3) [facility] WITH [id number] 03:30:19 Test Item Value Reference Range Interpretation Comments WBC (test code = See_Comment H [Automated 6690-2) message] The system which generated this result transmit gurvinder reference range : 4.20 - 10.70 10*3/?L. The reference range was not used to interpret this result as normal/abnormal . RBC (test code = See_Comment [Automated 789-8) message] The system which generated this result transmit gurvinder reference range : 4.26 - 5.52 10*6/?L. The reference range was not used to interpret this result as normal/abnormal . HGB (test code = 15.3 g/dL 12.2-16.4 718-7) HCT (test code = 43.4 % 38.4-49.3 4544-3) MCV (test code = 87.9 fL 81.7-95.6 787-2) MCH (test code = 31.0 pg 26.1-32.7 785-6) MCHC (test code = 35.3 g/dL 31.2-35.0 H 786-4) RDW-SD (test code = 38.4 fL 38.5-51.6 L 61586-4) RDW-CV (test code = 12.0 % 12.1-15.4 L 788-0) PLT (test code = See_Comment [Automated 777-3) message] The system which generated this result transmit gurvinder reference range : 150 - 328 10*3/ ?L. The reference range was not u sed to interpret th is result as normal/abnormal . MPV (test code = 9.1 fL 9.8-13.0 L 31183-6) NRBC/100 WBC (test See_Comment [Automat ed code = [id number]) message] The system which generated this result transmit gurvinder reference range : 0.0 - 10.0 /100 WBCs. The reference range was not used to interpret this result as normal/abnormal . NRBC x10^3 (test code <0.01 See_Comment [Auto mated = [id number]) message] The system which generated this result transmit gurvinder reference range : 10*3/?L. The reference range was not used to interpret this result as normal/abnormal . GRAN MAT (NEUT) % 89.9 % (test code = 770-8) IMM GRAN % (test code 1.00 % = 7690845761) LYMPH % (test code = 5.0 % 736-9) MONO % (test code = 3.8 % 5905-5) EOS % (test code = 0.0 % 713-8) BASO % (test code = 0.3 % 706-2) GRAN MAT x10^3(ANC) 16.59 10*3/uL 1.99-6.95 H (test code = 7482675762) IMM GRAN x10^3 (test 0.18 10*3/uL 0.00-0.06 H code = 5142650674) LYMPH x10^3 (test code 0.93 10*3/uL 1.09-3.23 L = 731-0) MONO x10^3 (test code 0.71 10*3/uL 0.36-1.02 = 742-7) EOS x10^3 (test code = <0.03 0.06-0.53 L 711-2) BASO x10^3 (test code 0.05 10*3/uL 0.01-0.09 = 704-7) BANDS (test code = Increased A 4115704411) Lab Interpretation Abnormal (test code = 88904-0) [facility] (04809)2021-02-16 03:14:56 Test Item Value Reference Range Interpretation Comments NA (test code = 140 mmol/L 135-145 1648957143) K (test code = 3.7 mmol/L 3.5-5.0 3860309494) CL (test code = 104 mmol/L 98-108 9030792366) CO2 TOTAL (test code = 23 mmol/L 23-31 1055737833) AGAP (test code = 2-16 4585126656) BUN (test code = 14 mg/dL 7-23 6149506098) GLUCOSE (test code = 128 mg/dL 70-110 H 8616851013) CREATININE (test code = 0.64 mg/dL 0.60-1.25 7864669597) TOTAL BILI (test code = 1.4 mg/dL 0.1-1.1 H 0401402705) CALCIUM (test code = 9.3 mg/dL 8.6-10.6 1399505152) T PROTEIN (test code = 8.1 g/dL 6.3-8.2 2546898716) ALBUMIN (test code = 4.3 g/dL 3.5-5.0 7412433895) ALK PHOS (test code = 124 U/L 34-122 H 8769315938) ALTv (test code = 61 U/L 5-50 H 1742-6) AST(SGOT) (test code = 56 U/L 13-40 H 6773383315) eGFR (test code = mL/min/1.73m2 7628934105) KUSHAL (test code = KUSHAL) Association of Glomerular Filtration Rate (GFR) and Staging of Kidney Disease* + --+ --+ ------+| GFR (mL/min/1.73 m2) ?| With Kidney Damage ?| ?Without Kidney Damage+ --------+ --------+ +| ?>90 ?| ?Stage one ?| ? Normal ?+ ---+ ---+ -------+| ?60-89 ?| ?Stage two ?| ? Decreased GFR ? + --+ --+ ------+| ?30-59 ?| ?Stage three ?| ? Stage three ? + --+ --+ ------+| ?15-29 ?| ?Stage four ? | ? Stage four ?+ ---+ ---+ -------+| ?<15 (or dialysis) ? ?| ?Stage five ? | ? Stage five ?+ ---+ ---+ -------+ *Each stage assumes the associated GFR level has been in effect for at least three months. ?Stages 1 to 5, with or without kidney disease, indicate chronic kidney disease. Notes: Determination of stages one and two (with eGFR >59mL/min/1.73 m2) requires estimation of kidney damage for at least three months as defined by structural or functional abnormalities of the kidney, manifested by either:Pathological abnormalities or Markers of kidney damage (including abnormalities in the composition of the blood or urine or abnormalities in imaging tests). Lab Interpretation Abnormal (test code = 17669-5) [facility] NOW RAPID TESTING)2021-02-16 02:19:29 Test Item Value Reference Range Interpretation Comments SARS-CoV-2 Rapid ID NOW Positive Not Detected A (test code = 85035-1) KUSHAL (test code = KUSHAL) ID NOW COVID-19 Assay is an isothermal nucleic acid amplification test intended for the qualitative detection of nucleic acid from SARS-CoV-2 viral RNA in nasopharyngeal (SKIN INSTALLER) specimens. It is used under Emergency Use Authorization (EUA) by FDA. The limit of detection (LOD) of the assay is 125 Genome Equivalents/mL. A positive result is indicative of the presence of SARS-CoV-2 RNA. ?Clinical correlation with patient history and other diagnostic information is necessary to determine patient infection status. A negative (Not Detected) result does not preclude SARS-CoV-2 infection. In patients with clinical symptoms and other tests that are consistent with SARS-CoV-2 infection, negative results should be treated as presumptive negative and a new specimen should be tested with alternative PCR molecular test. Invalid: Please collect a new specimen for repeat patient testing if clinically indicated. Lab Interpretation Abnormal (test code = 62869-6) [facility]manLactic Acid Whole [id number] 01:55:35 Test Item Value Reference Range Interpretation Comments LACTIC ACID (test code = 1.96 mmol/L 0.50-2.20 5714378819) Lab Interpretation (test code = Normal 01298-1) [facility] CHEST 1 [id number] 20:50:44 Hazy opacities in bibasilar lungs, may represent atypical pneumonia. Preliminary Report Dictated byResident: Chantal Cagle ?MD. Abdiel, have reviewed this study and agree with theabove report.EXAM: XR CHEST 1 VW HISTORY: 30 years-old Male; fever TECHNIQUE: Frontal radiograph of the chest. COMPARISON: None FINDINGS: Hazy airspace opacities in bibasilar lung condon. Bronchial wall thickeningin the left lower lung.. No pleural abnormality. The cardiomediastinal silhouette is normal. No osseous lesions are identified. [facility], Radiant Results Inft User - 02/11/2021 3:51 PM CDT EXAM: XR CHEST 1 VWHISTORY: 30 years-old Male; f ever TECHNIQUE: Frontal radiograph of the chest.COMPARISON: NoneFINDINGS:Hazy airspace opacities in bibasilar lung condon. Bronchial wall thickeningin the left lower lung.. No pleural abnormality.The cardiomediastinal silhouette is normal.No osseous lesions are identified.IMPRESSIONHazy opacities in bibasilar lungs, may represent atypical pneumonia.Preliminary Report Dictated by Resident: Chantal Mckinney MD., have reviewed this study and agree with theabove report.[facility]OVID[facility] (ID NOW RAPID TESTING)2021-02-11 20:45:12 Test Item Value Reference Range Interpretation Comments SARS-CoV-2 Rapid ID NOW Positive Not Detected A (test code = 11882-1) KUSHAL (test code = KUSHAL) ID NOW COVID-19 Assay is an isothermal nucleic acid amplification test intended for the qualitative detection of nucleic acid from SARS-CoV-2 viral RNA in nasopharyngeal (SKIN INSTALLER) specimens. It is used under Emergency Use Authorization (EUA) by FDA. The limit of detection (LOD) of the assay is 125 Genome Equivalents/mL. A positive result is indicative of the presence of SARS-CoV-2 RNA. ?Clinical correlation with patient history and other diagnostic information is necessary to determine patient infection status. A negative (Not Detected) result does not preclude SARS-CoV-2 infection. In patients with clinical symptoms and other tests that are consistent with SARS-CoV-2 infection, negative results should be treated as presumptive negative and a new specimen should be tested with alternative PCR molecular test. Invalid: Please collect a new specimen for repeat patient testing if clinically indicated. Lab Interpretation Abnormal (test code = 27716-6) [facility] [id number] 20:45:02 Test Item Value Reference Range Interpretation Comments Streptococcus pyogenes (group A) Negative Negative antigen (test code = 52426-9) Lab Interpretation (test code = Normal 07749-6) [facility]
[2021-08-29] MEDS ORDERED: LIDOCAINE 1% MPF 30 ML VIAL ONE (12:18)
--- NOTE | 2021-08-29 13:18 | RAD REPORT ---
EXAM DESCRIPTION: RAD - Knee Right 3 View - 08/29/2021 12:54 pm CLINICAL HISTORY: PAINinfra patella laceration COMPARISON: No comparisons FINDINGS: No fracture, dislocation or periosteal reaction.No joint effusion seen. No joint space alex rowing. No foreign body seen in the soft tissues. History indicates laceration near the patella inser tion to the tibia. Patella tendon does not appear thickened or irregular. There is no superior migrat ion of the patella to indicate a full-thickness patella tendon tear. Tendon itself is not fully asses sed on plain film. IMPRESSION: No acute bone or joint finding. No foreign body identified. Patella tendon appears to be intact but is not fully assessed on plain film.
--- NOTE | 2021-08-29 14:24 | ER ---
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 Coronavirus screen: At this time, the client does not indicate any symptoms associated with coronavirus-19. Ebola Screen: No symptoms or risks identified at this time. Initial Sepsis Screen: Does the patient meet any 2 criteria? No. Patient's initial sepsis screen is negative. Does the patient have a suspected source of infection? No. Patient's initial sepsis screen is negative. Risk Assessment: Do you want to hurt yourself or someone else? Patient reports no desire to harm self or others. Onset of symptoms was August 29, 2021. 11:56 Method Of Arrival: Ambulatory [facility] 11:56 Acuity: SARAH 4 jl7 Triage Assessment: 11:57 General: Appears in no apparent distress. uncomfortable, Behavior is calm, cooperative, jl7 appropriate for age. Pain: Complains of pain in right knee. Musculoskeletal: Swelling absent. Injury Description: Laceration sustained to posterior aspect of right knee is 2.6 to 7.5 cm long, was sustained 30-60 minutes ago. a small amount of bleeding noted at this time. Historical: - Allergies: 11:57 No Known Allergies; jl7 - Home Meds: 11:57 None [Active]; jl7 - PMHx: 11:57 None; jl7 - PSHx: 11:57 None; jl7 - Immunization history:: Client reports receiving the 2nd dose of the Covid vaccine. - Social history:: Smoking status: Patient denies any tobacco usage or history of. Screenin:24 Abuse screen: Denies threats or abuse. Nutritional screening: No deficits noted. ss7 Tuberculosis screening: No symptoms or risk factors identified. Fall Risk None identified. Assessment: 12:24 General: Appears in no apparent distress. Behavior is calm, cooperative, appropriate ss7 for age. Cardiovascular: No deficits noted. Cardiovascular: Heart tones S1 S2. Respiratory: Breath sounds are clear bilaterally. GI: No deficits noted. : No deficits noted. EENT: No deficits noted. Derm: Musculoskeletal: Range of motion: intact in all extremities, Tenderness present in right knee. Injury Description: Laceration sustained to right knee. 12:28 Reassessment: Care assumed at 1224. ss7 14:19 Reassessment: Patient states feeling better. Patient states symptoms have improved. Pt lr4 departed ed ambulatory with all personal effects. Vital Signs: 11:56 BP 133 / 97; Pulse 88; Resp 17; Temp 98.4; Pulse Ox 100% ; Weight 81.19 kg; Height 5 jl7 ft. 7 in. (170.18 cm); Pain 6/10; 13:45 BP 125 / 74; Pulse 71; Resp 16; Pulse Ox 100% ; ss7 11:56 Body Mass Index 28.04 (81.19 kg, 170.18 cm) jl7 ED Course: 11:48 Patient arrived in ED. am2 11:57 Triage completed. jl7 11:57 Arm band placed on right wrist. jl7 11:58 Tammy Hahn FNP-C is [facility]. kb 11:58 Ryan Villarreal MD is Attending Physician. kb 12:11 Andreina Kerr, REZA is Primary Nurse. ss7 12:24 Patient has correct armband on for positive identification. Bed in low position. Call ss7 light in reach. Side rails up X2. 12:24 No provider procedures requiring assistance completed. ss7 12:54 Knee Right 3 View XRAY In Process Unspecified. EDMS 14:20 Patient did not have IV access during this emergency room visit. lr4 Administered Medications: 12:24 Not Given (to be performed by provider per charge nursee): Lidocaine (1 %) 1 vials 5 ml ss7 Infiltration once; to bedside Outcome: 14:20 Condition: good lr4 14:20 Discharge instructions given to patient, family. lr4 14:20 Discharged to home lr4 14:23 Discharge ordered by . kb 14:31 Patient left the ED. ss7 Signatures: Dispatcher [employer] EDMS Tammy Hahn FNP-C FNP-Ckb Leal, Jahala, RN RN jl7 Linda Minor am2 Andreina Kerr, REZA COBB ss7 Root, Naheed, RN RN lr4
--- NOTE | 2021-08-29 14:24 | EDPHYS ---
Physician Documentation [facility] Name: Hardy Tomlinson Age: 30 yrs Sex: Male : 1990 Arrival Date: 08/29/2021 Time: 11:48 Bed 23 Private MD: ED Physician Ryan Villarreal HPI: 08/29 14:29 This 30 yrs old Male presents to ER via Ambulatory with complaints of Knee kb Injury, Laceration. 14:29 The patient has a laceration related to: working, occurred outdoors, and there are no kb complicating factors. The injury was accidental. The laceration(s) is(are) located on the posterior aspect of right knee. Onset: The symptoms/episode began/occurred today. Associated signs and symptoms: The patient has no apparent associated signs or symptoms. The patient has not experienced similar symptoms in the past. The patient has not recently seen a physician. Historical: - Allergies: 11:57 No Known Allergies; jl7 - Home Meds: 11:57 None [Active]; jl7 - PMHx: 11:57 None; jl7 - PSHx: 11:57 None; jl7 - Immunization history:: Client reports receiving the 2nd dose of the Covid vaccine. - Social history:: Smoking status: Patient denies any tobacco usage or history of. ROS: 14:27 Constitutional: Negative for fever, chills, and weight loss. kb 14:27 Skin: Positive for laceration(s), of the right knee. 14:27 All other systems are negative. Exam: 14:27 Constitutional: This is a well developed, well nourished patient who is awake, alert, kb and in no acute distress. Head/Face: Normocephalic, atraumatic. ENT: Moist Mucous membranes Respiratory: Respirations even and unlabored. No increased work of breathing. Talking in full sentences Abdomen/GI: Soft, non-tender. No distention MS/ Extremity: Pulses equal, no cyanosis. Neurovascular intact. Full, normal range of motion. Neuro: Awake and alert, GCS 15, oriented to person, place, time, and situation. Moves all extremities. Normal gait. 14:27 Skin: injury, laceration(s), the wound is approximately 3.5 cm(s), of the right knee, that can be described as clean, no foreign body, linear, with mild bleeding. Vital Signs: 11:56 BP 133 / 97; Pulse 88; Resp 17; Temp 98.4; Pulse Ox 100% ; Weight 81.19 kg; Height 5 jl7 ft. 7 in. (170.18 cm); Pain 6/10; 13:45 BP 125 / 74; Pulse 71; Resp 16; Pulse Ox 100% ; ss7 11:56 Body Mass Index 28.04 (81.19 kg, 170.18 cm) jl7 Laceration: 14:22 Wound Repair of 3.5cm ( 1.4in ) subcutaneous laceration to right knee. Linear shaped.. kb Distal neuro/vascular/tendon intact. Anesthesia: Wound infiltrated with 2 mls of 1% lidocaine. Wound prep: Extensive cleansing with hibiclenz by me, Wound irrigation with saline by me. Skin closed with 3 4-0 Prolene using 2 cruciate knots, one simple suture. Patient tolerated well. MDM: 11:58 Patient medically screened. kb 14:22 Data reviewed: vital signs, nurses notes. Data interpreted: Pulse oximetry: on room air kb is 100 %. Interpretation: normal. Counseling: I had a detailed discussion with the patient and/or guardian regarding: the historical points, exam findings, and any diagnostic results supporting the discharge/admit diagnosis, radiology results, the need for outpatient follow up, a family practitioner, to return to the emergency department if symptoms worsen or persist or if there are any questions or concerns that arise at home. 08/29 12:11 Order name: Knee Right 3 View XRAY; Complete Time: 13:27 kb 08/29 12:11 Order name: Dressing - Wound; Complete Time: 12:22 kb 08/29 12:11 Order name: Gloves, Sterile; Complete Time: 12:22 kb 08/29 12:11 Order name: Prolene, Sutures; Complete Time: 12:22 kb 08/29 12:11 Order name: Setup Suture Tray; Complete Time: 12:22 kb Administered Medications: 12:24 Not Given (to be performed by provider per charge nursee): Lidocaine (1 %) 1 vials 5 ml ss7 Infiltration once; to bedside Disposition Summary: 08/29/21 14:23 Discharge Ordered Location: Home kb Condition: Stable kb Diagnosis - Laceration without foreign body of knee kb Followup: kb - With: Emergency Department - When: As needed - Reason: Worsening of condition Followup: kb - With: Private Physician - When: 2 - 3 days - Reason: Recheck today's complaints, Continuance of care, Re-evaluation by your physician Discharge Instructions: - Discharge Summary Sheet kb - Laceration Care, Adult, [id number] kb Forms: - Medication Reconciliation Form kb - Thank You Letter kb - Antibiotic Education kb - Prescription Opioid Use kb Signatures: Dispatcher [employer] EDTammy Ruiz FNP-C FNP-Librado Salmon RN RN jl7 Andreina Kerr RN ss7
== END 2021-08-29 14:31 | disposition home or self-care (01) ==
LOC: ER 11:46
PROC: 0JQN0ZZ Repair Right Lower Leg Subcutaneous Tissue and Fascia, Open Approach (ICD-10-PCS; principal; 2021-08-29)
DX: S81.011A Laceration without foreign body, right knee, initial encounter (principal); W45.8XXA Other foreign body or object entering through skin, initial encounter; Y93.9 Activity, unspecified; Y92.89 Other specified places as the place of occurrence of the external cause; Y99.8 Other external cause status
CPT/HCPCS: 99283